=== PATIENT | female | born 1985 | race American Indian/Alaskan Native ===

== ENCOUNTER 2021-04-10 16:05 | Emergency (ER) | payer SELFPAY ==
--- NOTE | 2021-04-10 19:10 | Event Note ---
ED Screening Note ED Screening Note: Patient presents for vaginal bleeding that began 04/01/21 She states her last normal menstrual cycle was January 20 Reports that she took a test [id number] and states it was positive but she has not had this confirmed she states that sometimes she does have irregular cycles and will miss a cycle for a month She states that she is changing her pad approximately every 3 hour She has some mild lower abdominal cramping This initial assessment/diagnostic orders/clinical plan/treatment(s) is/are subject to change based on patients health status, clinical progression and re- assessment by fellow clinical providers in the ED. Further treatment and workup at subsequent clinical providers discretion. Patient/guardian urged not to elope from the ED as their condition may be serious if not clinically assessed and managed. Initial orders include: Labs, urine Awaiting hCG quant to see if patient needs OB ultrasound
[2021-04-10 20:12] LABS: Basophils % (Auto) 0.4 % (0.0-1.8); Eosinophils # (Auto) 0.4 K/mm3 (0.0-0.4); Eosinophils % (Auto) 5.8 % (0.0-4.3); Hematocrit 38.6 % (30.3-42.9); Lymphocytes # (Auto) 2.4 K/mm3 (1.2-5.4); Lymphocytes % (Auto) 35.3 % (13.4-35.0); Mean Corpuscular HGB Conc 31 % (30-34); Mean Corpuscular Volume 82 fl (79-97); Monocytes # (Auto) 0.6 K/mm3 (0.0-0.8); Monocytes % (Auto) 8.5 % (0.0-7.3); Platelet Count 385 K/mm3 (140-440); Red Blood Count 4.68 M/mm3 (3.65-5.03); Red Cell Distribution Width 15.8 % (13.2-15.2)
--- NOTE | 2021-04-10 20:29 | Emergency Department Report ---
ED Female HPI - General Chief complaint: Vaginal Bleeding Stated complaint: 8 WK PG, VAG BLEEDING Source: patient Mode of arrival: Ambulatory Limitations: No Limitations - History of Present Illness Initial comments: She is a 35-year-old female presents emergency department with complaints of positive test and vaginal bleeding. Patient reports that she took a home test on that was positive. Her last menstrual period was January 20. She also notes that she has had bleeding started today and she notes that she is changing pads every 2-3 hours although these are not completely soaked. She notes that she is not currently on any control. - Related Data Allergies Allergy/AdvReac Type Severity Reaction Status Date / Time No Known Allergies Allergy Unverified 04/10/21 18:51 ED Review of Systems ROS: Stated complaint: 8 WK PG, VAG BLEEDING Other details as noted in HPI Constitutional: denies: chills, fever Eyes: denies: eye pain, eye discharge, vision change ENT: denies: ear pain, throat pain Respiratory: denies: cough, shortness of breath, wheezing Cardiovascular: denies: chest pain, palpitations Endocrine: no symptoms reported Gastrointestinal: abdominal pain. denies: nausea, vomiting Genitourinary: denies: urgency, dysuria, hematuria, discharge Musculoskeletal: denies: back pain, joint swelling, arthralgia Skin: denies: rash, lesions Neurological: denies: headache, weakness, paresthesias Psychiatric: denies: anxiety, depression Hematological/Lymphatic: denies: easy bleeding, easy bruising ED Physical Exam - General Limitations: No Limitations General appearance: alert, in no apparent distress - Head Head exam: Present: atraumatic, normocephalic - Eye Eye exam: Present: normal appearance - ENT ENT exam: Present: mucous membranes moist - Neck Neck exam: Present: normal inspection - Respiratory Respiratory exam: Present: normal lung sounds bilaterally. Absent: respiratory distress - Cardiovascular Cardiovascular Exam: Present: regular rate, normal rhythm. Absent: systolic murmur, diastolic murmur, rubs, gallop - GI/Abdominal GI/Abdominal exam: Present: soft, normal bowel sounds. Absent: tenderness - Rectal Rectal exam: Present: deferred - Extremities Exam Extremities exam: Present: normal inspection - Back Exam Back exam: Present: normal inspection - Neurological Exam Neurological exam: Present: alert, oriented X3 - Psychiatric Psychiatric exam: Present: normal affect, normal mood - Skin Skin exam: Present: warm, dry, intact, normal color. Absent: rash ED Course Vital Signs 04/10/21 04/10/21 18:51 22:23 Temperature 98.4 F Pulse Rate 64 64 Respiratory 17 16 Rate Blood Pressure 161/96 120/66 [Right] O2 Sat by Pulse 100 98 Oximetry - Reevaluation(s) Reevaluation #1: 04/10/21 22:43 Patient's labs and ultrasound images were reviewed with OB on-call, Dr. Nieto. He does recommend that patient return in 48 hours for repeat beta hCG testing. If is trending down and patient has no worsening symptoms that should be okay for no ultrasound to be repeated however if patient has increase in beta hcg, worsening symptoms or increased bleeding her ultrasound should be repeated. ED Medical Decision Making - Lab Data Result diagrams: 04/10/21 19:44 04/10/21 19:44 - Medical Decision Making Patient is here with complaint of positive test and vaginal bleeding. Her labs here do demonstrate a positive quant level of 139. Given this plan for ultrasound to evaluate. Differential includes ectopic , early , miscarriage. Will discuss and reevaluate with patient after Rh results and ultrasound. Critical care attestation.: If time is entered above; I have spent that time in minutes in the direct care of this critically ill patient, excluding procedure time. ED Disposition Clinical Impression: Encounter for assessment for suspected ectopic , of unknown anatomic location Disposition: HOME / SELF CARE / HOMELESS Is pt being admited?: No Does the pt Need Aspirin: No Condition: Stable Instructions: Threatened Miscarriage, [id number], Ectopic , [id number] Additional Instructions: At this time your hormone is low and your ultrasound does not show a . There is concerned that you could have an ectopic or that you could have had a miscarriage. You should return in 48 hours to the emergency department for repeat blood hormone testing. If your hormone level is going low or your symptoms are improving then we will not need to repeat an ultrasound. Referrals: PRIMARY CARE, [Primary Care Provider] - 3-5 Days MIGUEL NIETO MD [Staff Physician] - 7-10 days Time of Disposition: 22:48
[2021-04-10 20:30] LABS: Alanine Aminotransferase 15 units/L (7-56); Blood Urea Nitrogen 6 mg/dL (7-17); Calcium 9.9 mg/dL (8.4-10.2); Hemolysis Index 4
[2021-04-10 20:35] LABS: BUN/Creatinine Ratio 15
--- NOTE | 2021-04-10 21:45 | Ultrasound Report ---
ULTRASOUND OBSTETRIC INDICATION / CLINICAL INFORMATION: pos preg test; vaginal bleeding; abdominal cramping. Beta hCG 139. 5 Clinical Gestational Age (GA) in weeks, days: 11 weeks 3 days TECHNIQUE: Transabdominal. COMPARISON: None available. FINDINGS: GESTATIONAL SAC: No gestational sac identified. The endometrial echo complex measures 0.6 cm. There i s a complex hypoechoic area seen in the lower uterine segment measuring 3.6 x 1.7 cm ADNEXA: Right ovary is normal measuring 2.6 x 1.8 x 1.6 cm.Left ovary appears normal and measures 2.7 x 1.8 x 2.1 cm. FREE FLUID: No free fluid identified ADDITIONAL FINDINGS: None. IMPRESSION: 1. No intrauterine gestational sac or pole identified. There is a hypoechoic collection in the lower uterine segment which is nonspecific. These findings are consistent with of unknown l ocation. 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 2. The ovaries appear normal. Signer Name: Kaveh Pemberton MD Signed: 04/10/2021 9:40 PM Workstation Name: [id number]
[2021-04-10 22:12] LABS: Bilirubin,Urine NEG (Negative); Blood,Urine LG (Negative); Calcium Oxalate Crystals,Urine 2+; Color,Urine Yellow (Yellow); Mucus,Urine FEW /HPF; Protein,Urine <15 mg/dL mg/dL (Negative); Urobilinogen,Urine < 2.0 mg/dL (<2.0)
[2021-04-10 22:13] LABS: RBC,Urine > 182.0 /HPF (0.0-6.0)
[2021-04-10 22:24] VITALS: BP 120/66
== END 2021-04-10 22:54 | disposition home or self-care (01) ==
LOC: ED 16:05
DX: O20.9 Hemorrhage in early pregnancy, unspecified (principal); Z3A.01 Less than 8 weeks gestation of pregnancy
CPT/HCPCS: 36415; 76801; 80053; 81001; 84702; 85025; 86900; 86901; 87086; 99284